=== PATIENT | male | born 1985 | race Caucasian/White ===

== ENCOUNTER 2021-08-28 18:37 | Emergency (ER) | payer OTHER, SELFPAY ==
--- NOTE | ~2021-08-28 | XR_ITS ---
EXAMINATION: XR hand RT min 3V INDICATION: Right hand pain, initial encounter TECHNIQUE: Three views of the right hand are obtained. COMPARISON: None available FINDINGS: There is an acute, traumatic, closed, oblique fracture in the midshaft of the fourth metaca rpal. The distal fracture fragment is dorsally displaced approximately one cortical width and demonst rates approximately 20 degrees of palmar angulation. The remaining osseous structures are unremarkabl e. The joint spaces are normal. IMPRESSION: 1. Acute mid shaft fracture of the fourth metacarpal with mild displacement and angulation. Reviewed, dictated and finalized at location F.
[2021-08-28 18:45] VITALS: BP 159/90; PULSE 101; RESP 16; TEMP 36.9; O2SAT 98
--- NOTE | 2021-08-28 19:08 | ED.UPPEXIN ---
HPI - Extremity Injury (Upper) General Chief Complaint: Extremity Injury, Upper Stated Complaint: Right Hand Injury Time Seen by Provider: 08/28/21 19:08 Source: patient and RN notes reviewed Mode of arrival: ambulatory Limitations: no limitations History of Present Illness HPI narrative: 36-year-old male presents with concern for right hand pain after he punched a wall 2 weeks ago. Reports of burning and stinging pain. Reports swelling. Reports he taking anything for pain. 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 complaint: injury to: right and hand Related Data Home Medications Medication Instructions Recorded Confirmed No Home Medications 08/28/21 08/28/21 Allergies Allergy/AdvReac Type Severity Reaction Status Date / Time No Known Allergies Allergy Verified 08/28/21 18:49 Review of Systems Review of Systems: CONSTITUTIONAL: Denies malaise, chills, sweats, or fever. CARDIOVASCULAR: Denies chest pain, palpitations, or edema. RESPIRATORY: Denies cough or dyspnea. SKIN: Denies rash or itching, redness, swelling. MUSCULOSKELETAL: Reports right hand pain, swelling, bruising NEUROLOGIC: Denies numbness, weakness All systems reviewed & are unremarkable except as noted in HPI and below PMFSH Comments At time of signature, agree with nursing past medical, surgical, social and family history. There is no relevant family history pertinent to the presenting complaint Exam Narrative: GENERAL: Well-appearing, well-nourished, and in no acute distress. HEAD: Normocephalic, atraumatic. EYES: PERRLA, conjunctivae clear NECK: Supple. CHEST: Speaks in full sentences. No respiratory distress. HEART: Regular rate and rhythm. Normal and equal peripheral pulses. EXTREMITIES: Right hand and digits of hand have normal strength and sensation. 5/5 strength with digit flexion, extension. Range of motion grossly normal. No clubbing, cyanosis noted. Edema and ecchymosis noted to the dorsal hand. Dorsal tenderness. Skin intact. Normal digital cascade with flexion of fingers, median, ulnar and radial nerve intact. Normal sensation of each side of finger. Normal thumb opposition. Good capillary refill and radial pulse. Distal capillary refill less than 3 seconds. Patient is right hand dominant SKIN: Warm, dry, no rash. NEURO: Alert and oriented x3. PSYCH: Normal mood and affect Course Course Emergency Course: Patient has a stainless steel ring on the third digit, the knuckle is large and the ring is unable to be removed manually. Patient reports he hardly ever takes it off and normally, prior to injury, is unable to remove it. Try to use the string method to remove the ring without success, attempted the manual saw, without any disruption to the ring. Patient refuses to have the ring cut off with a saw. He reports he will try to take it off in the morning when his hands are usually less swollen. Patient is aware of diagnosis, understands and agrees to treatment plan. Anticipatory guidance given. Patient agrees to follow-up as directed and is aware of reasons to seek care at the emergency department. Portions of this record may have been created with voice recognition software Level of Care: Express Care Visit Vital Signs Vital signs: Vital Signs Temperature 98.5 F 08/28/21 18:45 Pulse Rate 101 H 08/28/21 18:45 Respiratory Rate 16 08/28/21 18:45 Blood Pressure 159/90 H 08/28/21 18:45 Pulse Oximetry 98 08/28/21 18:45 Temperature 98.5 F 08/28/21 18:45 Pulse Rate 101 H 08/28/21 18:45 Respiratory Rate 16 08/28/21 18:45 Blood Pressure 159/90 H 08/28/21 18:45 Pulse Oximetry 98 08/28/21 18:45 Reviewed. Procedures Orthopedic Splinting/Casting Injury #1: Splinting/Casting Date: 08/28/21 Splinting/Casting Time: 19:20 Upper Extremity Injury Location: hand Splint: customized in ED OCL: ulnar gu
== END 2021-08-28 19:40 | disposition home or self-care (01) ==
PROVIDERS: Emergency Provider Nurse Practitioner
DX: S62.324A Displaced fracture of shaft of fourth metacarpal bone, right hand, initial encounter for closed fracture (principal); W22.8XXA Striking against or struck by other objects, initial encounter
CPT/HCPCS: 29125; 73130; 99214; A4565; G0463

== ENCOUNTER 2021-09-03 02:08 | Day surgery (SDC) | payer OTHER, SELFPAY ==
[2021-09-01 09:43] VITALS: BMI 23.2
--- NOTE | 2021-09-01 09:53 | PC.NURSE ---
Report to the Outpatient Waiting Room, entrance under the green pavilion located off [facility], at time 0600 on date 09/03/2021. OR Time: 0730. - You and your visitor will be asked a series of questions to screen for COVID 19 for your protection. - Only one visitor is allowed at this time. - The patient visitor is requested to leave or wait in car when not with patient. - A mask is required within the hospital. -Patients may have clear liquids (water, carbonated beverages, clear teas, apple juice) until 3 hours prior to surgery with a maximum of 20 ounces. - No food from midnight until time of surgery. Take the following medications with a SIP of water the morning of surgery: n/a Medications to discontinue per physician Date to take last dose Please no make-up, nail kyrgyz, hairspray, perfume, deodorant, or body powder the day of surgery. No jewelry (including any body piercings) or valuables the day of surgery, leave them at home. Please take a shower or bath the night before, or the morning of, surgery with an antibacterial soap. Wear comfortable, loose fitting clothing. - Jewelry must be removed prior to entering the operating room. Rings and piercings that are not removed may be cut off. - The hospital will not accept responsibility for valuables. - Please leave all valuables, including medications, at home the day of surgery. If you are going home after surgery, a licensed customer service driver must drive you home. - NO public transportation without another adult. - We recommend that an adult stay with you for 24 hours following discharge. - We also recommend that you do not drive, make important decision, drink alcoholic beverages, or take any drugs that were not prescribed by your health care provider for at least 24 hours after your discharge time. Follow any additional instructions given to you from your surgeon. If you or anyone in your household have experienced Covid symptoms in the past week, please notify your surgeon or the nurse liaison at the phone number below for possible testing. Telephone instructions given to and asked if any additional questions and then verbalized understanding. Patient advised to call surgeon office or pre surgery nurse liaison [phone] if any additional questions.
--- NOTE | ~2021-09-03 | XR_ITS ---
EXAMINATION: XR surgery orthopedic DATE: 09/03/2021 08:46 INDICATION: Reduction and fixation of a fourth metacarpal fracture. TECHNIQUE: 3 fluoroscopic images of the right fourth metacarpal were obtained during procedure perfor med by Dr. Frank. Radiologist was not present for the imaging or procedure. The amount of fluoroscopy time used during this procedure was 2.5 minutes. COMPARISON: 08/28/2021 FINDINGS: Antegrade pin fixation spanning an oblique mid diaphyseal fracture of the right fourth metacarpal whi ch is now near-anatomic alignment. There is some nonbridging callus formation surrounding the fractur e. No new fractures identified. Joint spaces are normal. IMPRESSION: 1. Near-anatomic alignment post reduction and pin fixation of a mid diaphyseal fracture of the right fourth metacarpal. Reviewed, dictated and finalized at location A.
[2021-09-03] MEDS: LACTATED RINGERS 1,000 ML 30 ML IV CONT (06:45)
[2021-09-03] MEDS: ACETAMINOPHEN 500 MG TABLET 1000 MG PO (06:47)
[2021-09-03 07:13] VITALS: BP 105/67; PULSE 64; RESP 18; TEMP 36.1; O2SAT 99
--- NOTE | 2021-09-03 07:16 | WPDHPUPDATE1 ---
History and Physical Update Update Date/Time: 09/03/21 07:16 History and Physical has been reviewed, including an updated exam of the patient. There are NO changes in the patient's condition. Risks, benefits, and alternatives have been discussed and questions answered. Patient agrees to proceed with procedure.
--- NOTE | 2021-09-03 07:19 | WPDANESEPPF ---
Anes - Initial Pre Proc Eval Procedure: Operation Date: 09/03/21 07:30 Proposed Procedures p Closed or Possible Open Reduction Internal Fixation of Right Fourth Metacarpal Shaft Fracture with Intramedullary Gerson - Willard Frank MD Date/Time: 09/03/21 07:19 Surgeon: Willard Frank MD Pre Op Diagnosis: Fx Rt Fourth Metacarpal Shaft Patient Data Age: 36 Gender: M Height: 1.85 m Weight: 83.4 kg Last Vital Signs Temp 36.1 C L 09/03/21 07:13 Pulse 64 09/03/21 07:13 Resp 18 09/03/21 07:13 BP 105/67 09/03/21 07:13 Pulse Ox 99 09/03/21 07:13 Allergies Allergy/AdvReac Type Severity Reaction Status Date / Time No Known Allergies Allergy Verified 09/03/21 07:08 Home Medications Medication Instructions Recorded Confirmed Type No Home Medications 08/28/21 09/03/21 History Patient hx anesthesia problems: none Family hx anesthesia problems: none Results Review: All pre-operative results and documents have been reviewed as part of the pre-operative evaluation. 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 Informed Consent: The patient's anesthetic plan and its attendant risks and benefits were discussed with the patient/family/POA. Questions were solicited and answers provided to the satisfaction of the patient/family/POA.
[2021-09-03] MEDS: KETOROLAC 15 MG/ML VIAL (*BKC) IV PUSH (07:26)
[2021-09-03] MEDS: ceFAZolin 2 GM/D5W 50 ML 2 GM/50 ML BAG IVPB (07:28)
[2021-09-03] MEDS: LIDO 1%/EPINEPHRINE 1:100,000 50 ML VIAL 10 ML INFILTRATE (07:28)
--- NOTE | 2021-09-03 07:28 | SUR.PREOP ---
0720 RING REMOVED BY OR PERSONEL WITH WIRE CUTTERS
[2021-09-03] MEDS: BUPIVACAINE HCL 0.5% PF 30 ML VIAL INFILTRATE (08:34)
[2021-09-03] MEDS: BACITRACIN OINTMENT 15 GM TUBE 1 APPLIC TOPICAL (08:35)
[2021-09-03 09:00] VITALS: BP 136/88; PULSE 67; RESP 12; TEMP 36.1; O2SAT 100
--- NOTE | 2021-09-03 09:08 | P.OP_ITS ---
Procedure Note - Detailed Date of Procedure 09/03/21 Pre-op Diagnosis Fx Rt Fourth Metacarpal Shaft Post-op Diagnosis Same Procedure Performed Open reduction and internal fixation of the right 4th metacarpal shaft fracture with [employer] 1.6 mm intramedullary fixation device. Surgeon Willard Frank MD Automobile Tester Pao Anesthesia General Indications Displaced right 4th metacarpal shaft fracture Description of Procedure The 4th metacarpal was marked on the patient in preop. He was taken to the operating room placed supine on the operating table. He was given general endotracheal anesthesia and the hand prepped and draped in usual fashion. A time-out was held confirmed. The C-arm was brought to the table and images made identifying entry point for the fixation device and the position of the fracture. The tourniquet was inflated 250 mmHg. The 2 surgical sites were infiltrated with 1% lidocaine with epinephrine. The small incision was made at the base of the 4th metacarpal and the entry point accessed with the introducer. This was passed into the medullary canal with fluoroscopy. The 1.6 mm mao was advanced toward the fracture line. I was not able to cross the fracture line successfully with attempted closed reduction of the fracture. A small incision was made at the 4th metacarpal fracture site and the fracture identified. The extensor tendons were held to the radial aspect and mature fracture clot was removed with the Nomi Stephen, scissors and knife. This allowed coaptation of the 2 fracture ends permitting passage of the 1.6 mm intramedullary fixation device out to the termination point at the head of 4th metacarpal. The placement was confirmed by C-arm images. The pin was then cut and bent vertically. The sleeve was passed over that to prevent rotation and inserted into the base of the 4th metacarpal. The pin was then cut below skin level and the protective plastic cap fitted over that. This construct was imaged and permanent films made. The skin was closed with a running 5 0 nylon both sites. 7 milliliter of 0.5% Marcaine were infiltrated locally. A soft bandage with Coban wrap was applied to the hand and wrist. The tourniquet was released and he was discharged from the operating room stable condition Estimated Blood Loss -5.0 Tourniquet Time 52 Drains No Packing No Pathology None sent Complications No immediate complications Condition Stable Disposition PACU
[2021-09-03 09:15] VITALS: BP 130/77; PULSE 54; RESP 10; O2SAT 100
[2021-09-03 09:30] VITALS: BP 121/74; PULSE 58; RESP 12; O2SAT 98
[2021-09-03 09:46] VITALS: BP 140/105; PULSE 52
--- NOTE | 2021-09-03 10:06 | SUR.PHASEII ---
Patient was offered an ice bag to take home and he refused.
[2021-09-03 10:15] VITALS: BP 146/83; PULSE 62
--- NOTE | 2021-09-03 10:20 | SUR.PHASEII ---
Patient vitals are stable. He is getting dressed and just waiting for ride at this time.
== END 2021-09-03 10:30 | disposition home or self-care (01) ==
PROVIDERS: Visit Provider Plastic Surgery
PROC: (CPT 26615; principal; 2021-09-03 07:30)
DX: S62.324A Displaced fracture of shaft of fourth metacarpal bone, right hand, initial encounter for closed fracture (principal); T14.90XA Injury, unspecified, initial encounter
CPT/HCPCS: 26615; A9270; C1713; J0690; J1100; J1170; J1885; J2250; J2405; J2704; J3010; J7120

== ENCOUNTER 2021-10-10 09:28 | Emergency (ER) | payer OTHER, SELFPAY ==
--- NOTE | ~2021-10-10 | XR_ITS ---
XR chest 2V 10/10/2021 10:18 Indication: Fever. Diminished breath sounds. Procedure: 2 view chest Comparison: No prior studies for comparison. Findings: There is a right upper lobe mass posteriorly overlying the hilum, suspicious for bronchogen ic carcinoma. Heart size normal. No pleural effusion or pneumothorax. Impression: 1: Large ill-defined right upper lobe mass, concerning for bronchogenic carcinoma. Reviewed, dictated and finalized at location B. Impression: 1: Large ill-defined right upper lobe mass, concerning for bronchogenic carcino ma.
[2021-10-10 09:40] VITALS: BP 131/96; PULSE 108; RESP 22; TEMP 38.9; O2SAT 97
--- NOTE | 2021-10-10 09:55 | ED.GENADULT ---
HPI - General Adult General Chief complaint: Upper Respiratory Infection Stated complaint: Sharp pains in back nausea Time Seen by Provider: 10/10/21 09:55 Source: patient and RN notes reviewed Mode of arrival: ambulatory Limitations: no limitations History of Present Illness HPI narrative: 36-year-old male presented for complaint of fever, back pain cough, nausea and vomiting for 2 days. Back pain is worse on the right mid side. Coughing up thick yellow sputum. He has been taken ibuprofen and Tylenol but states he ran out last night. He is not vaccinated for COVID or flu. He denies sick contacts. He states I think I have pneumonia. Hx 1/ PPD smoker and IVDA (Fentanyl). Related Data Allergies Allergy/AdvReac Type Severity Reaction Status Date / Time No Known Allergies Allergy Verified 10/10/21 09:55 Review of Systems Review of Systems: CONSTITUTIONAL: Endorses malaise, chills, sweats, fever EYES: Denies visual changes, redness, or discharge ENT: Denies rhinorrhea, congestion, sinus pain, otalgia, sore throat CARDIOVASCULAR: Denies chest pain, palpitations, edema RESPIRATORY: Reports cough, post nasal drainage. Denies dyspnea GASTROINTESTINAL: Denies abdominal pain MUSCULOSKELETAL: Endorses myalgia, back pain NEUROLOGIC: Reports headache PMFSH Past Medical History Medical History Chronic narcotic use Smoker Social History Social History (Updated 10/10/21 @ 11:00 by Chelsea Capone, CHARGEBACK ANALYST) Smoking packs per day: 1 Smoking cigarettes per day: 20.0 Years smoked: 15 Smoking pack-years: 15.00 Smoking status: Current every day smoker Alcohol intake: former Substance use: current Substance use type: marijuana Other substance usage details: 10 year hx of Fentanyl usage- Spiritual care concerns: No Exam Narrative: GENERAL: Ill-appearing, no distress; appears older than stated age EYES: conjunctivae clear ENT: Mucous membranes moist. TM pearly seo with dull light reflex bilaterally; no tragal tenderness. Oropharynx erythematous without lesions or exudate, no drooling, no hoarseness, no trismus, uvula midline. No tripod positioning, muffled voice, soft palate or pharyngeal wall bulging NECK: Supple. No lymphadenopathy CHEST: Clear to auscultation, breath sounds equal. No wheezing, rhonchi, rales, or stridor. No respiratory distress, speaks in full sentences. HEART: Regular rate and rhythm. No murmur heard. SKIN: sallow color, track contreras to bilateral arms NEURO: Alert and oriented x3. Course Course Emergency Course: Patient is aware of diagnosis, understands and agrees to treatment plan. Anticipatory guidance given. Patient agrees to follow-up as directed and is aware of reasons to seek care at the emergency department. Portions of this record may have been created with voice recognition software Level of Care: Express Care Visit Vital Signs Vital signs: Vital Signs Temperature 102.1 F H 10/10/21 09:40 Pulse Rate 108 H 10/10/21 09:40 Respiratory Rate 22 H 10/10/21 09:40 Blood Pressure 131/96 H 10/10/21 09:40 Pulse Oximetry 97 10/10/21 09:40 Oxygen Delivery Room Air 10/10/21 09:40 Temperature 102.1 F H 10/10/21 09:57 Pulse Rate 108 H 10/10/21 09:40 Respiratory Rate 22 H 10/10/21 09:40 Blood Pressure 131/96 H 10/10/21 09:40 Pulse Oximetry 97 10/10/21 09:40 Oxygen Delivery Room Air 10/10/21 09:40 reviewed Medical Decision Making MDM Narrative Medical decision making narrative: Flu and COVID-negative. Chest x-ray reviewed with patient at length, large ill-defined right upper lobe mass concerning for bronchogenic carcinoma. Patient is advised to follow-up with pulmonary and establish with a primary care provider. Questions answered to the best of my ability. Will treat for pna at this time. He verbalizes understanding. Girlfriend at bedside also aware. He is advised to abstain from smoking and IV drug abuse. Endorses mild improvement in sy
[2021-10-10 09:57] VITALS: TEMP 38.9
[2021-10-10] MEDS: IBUPROFEN 400 MG TABLET 800 MG PO (09:57)
[2021-10-10 10:27] VITALS: TEMP 38.4
[2021-10-10] MEDS: ONDANSETRON HCL ODT 4 MG TABLET SUBLINGUAL (10:37)
[2021-10-10 11:00] VITALS: TEMP 38.4
== END 2021-10-10 11:00 | disposition home or self-care (01) ==
PROVIDERS: Emergency Provider Nurse Practitioner Family
DX: R05.9 Cough, unspecified (principal); R91.8 Other nonspecific abnormal finding of lung field; Z20.822 Contact with and (suspected) exposure to COVID-19; F17.210 Nicotine dependence, cigarettes, uncomplicated; Z28.310 Unvaccinated for COVID-19
CPT/HCPCS: 71046; 87081; 87147; 87426; 87804; 87880; 99213; A9270; C9803; G0463

== ENCOUNTER 2021-10-11 06:17 | Inpatient (IN) | payer OTHER, SELFPAY ==
[2021-10-11] VITALS (8 sets, daily range): BP systolic 92–110; BP diastolic 50–87; PULSE 67–76; RESP 12–18; TEMP 36.4–37.3; O2SAT 93–100; BMI 24.4
--- NOTE | 2021-10-11 | ECHO_ITS ---
Patient Info Name: Wilmer Good Age: 36 years : 1985 Gender: Male Ht: 72 in Wt: 180 lbs BSA: 2.04 m2 HR: 68 bpm BP: 102 / 61 mmHg Heart Rhythm: Sinus Rhythm Technical Quality: Good Exam Date: 10/11/2021 1:11 PM Exam Location: [facility] Pulmonary Patient Status: Inpatient Admit Date: 10/11/2021 Staff Ordering Physician: Shaylee Hay MD Manufacturing Engineer Machining: Fani Felton RDCS Attending Provider: Lilly Boone DO Exam Type: CA echo doppler color flow Study Info Indications I39 - Endocarditis and heart valve disorders in diseases classified elsewhere Complete two-dimensional, color flow and Doppler transthoracic echocardiogram is performed. Summary 1. Complete two-dimensional, color flow and Doppler transthoracic echocardiogram is performed. 2. Left ventricular chamber dimension is normal. 3. Left ventricular systolic function is low normal, estimated at 50-55%. 4. There is no increased left ventricular wall thickness. 5. The left ventricular diastolic function is normal. 6. There is mild mitral valve regurgitation. 7. There is mild tricuspid valve regurgitation. 8. There is mild pulmonic regurgitation. Left Ventricle Left ventricular chamber dimension is normal. Left ventricular systolic function is low normal, estimated at 50-55%. There is no increased left ventricular wall thickness. The left ventricular diastolic function is normal. Right Ventricle Right ventricular chamber dimension is normal. Right ventricular systolic function is normal. Left Atria Left atrial chamber dimension is normal. Right Atria Right atrial chamber dimension is normal. Atrial Septum Intact interatrial septum visualized by color flow imaging. Aortic Valve The aortic valve is trileaflet. There is no aortic valve sclerosis. There is no aortic valve stenosis. There is trace aortic valve regurgitation. Pulmonic Valve The pulmonic valve is normal. There is no pulmonic valve stenosis. There is mild pulmonic regurgitation. Mitral Valve The mitral valve has normal leaflets. There is no mitral valve stenosis. There is mild mitral valve regurgitation. Tricuspid Valve The tricuspid valve leaflets are normal. There is no significant tricuspid valve stenosis. There is mild tricuspid valve regurgitation. Pericardium/Pleural The pericardium appears normal. There is no pericardial effusion. Inferior Vena Cava Normal inferior vena cava with >50% collapse upon inspiration consistent with normal right atrial pressure, 5 mmHg. Aorta The aortic root size at the sinus of Valsalva is normal. Left Ventricular Outflow Tract Name Value Normal LVOT 2D LVOT Diameter 2.1 cm LVOT Doppler LVOT Peak Gradient 2 mmHg LVOT Mean Gradient 1 mmHg LVOT VTI 20 cm LVOT VTI/AV VTI Ratio 1.1 LVOT Stroke Volume 71 ml LVOT CO 14.4 l/min LVOT CI 7.0 l/min/m2 Pulmonic Valve
--- NOTE | ~2021-10-11 | CT_ITS ---
EXAMINATION: CTA chest PE protocol DATE: 10/11/2021 08:06 CDT INDICATION: Hemoptysis TECHNIQUE: Computed tomographic angiography (CTA) of the chest was performed with 100 mL Omnipaque-35 0 intravenous contrast. The dose-length product was 349.30 mGy-cm. Maximum intensity projection 3D-re constructions of the aorta and other arteries were constructed by the technologist on a separate work station. Automated exposure control and iterative reconstruction technique were employed. COMPARISON: Chest dated 10/10/2021. FINDINGS: Study is technically adequate without evidence for pulmonary embolism. There is mediastinal and hilar lymphadenopathy, likely reactive. No significant pleural or pericardial effusion. There is extensive airspace consolidation involving the right upper, middle and lower lobes with air bronchog petar, consistent with pneumonia. This corresponds to the masslike consolidation seen on chest x-ray. No endobronchial lesions are identified. There are additional areas of groundglass opacification thro ughout the left lung. No pneumothorax. The upper abdomen is unremarkable. No acute osseous abnormalit y. IMPRESSION: 1. Extensive patchy bilateral airspace disease with masslike consolidation in the right upper and low er lobe, consistent with pneumonia. Recommend follow-up examination in 4-6 weeks following appropriat e therapy to assess for resolution. 2: Mediastinal and right hilar lymphadenopathy, likely reactive. 3: No evidence for pulmonary embolism. Reviewed, dictated and finalized at location A. IMPRESSION: 1. Extensive patchy bilateral airspace disease with masslike consolidation in t he right upper and lower lobe, consistent with pneumonia. Recommend follow-up e xamination in 4-6 weeks following appropriate therapy to assess for resolution. 2: Mediastinal and right hilar lymphadenopathy, likely reactive. 3: No evidence for pulmonary embolism.
--- NOTE | 2021-10-11 06:43 | ECG_ITS ---
Measurements Intervals [place] Rate: 69 P: 53 MO: 167 QRS: 44 QRSD: 95 T: 51 QT: 416 QTc: 447 Interpretive Statements SINUS RHYTHM POSSIBLE RIGHT VENTRICULAR CONDUCTION DELAY [RSR (QR) IN V1/V2] ST ELEVATION, PROBABLY EARLY REPOLARIZATION [ST ELEVATION WITH NORMALLY INFLECTED T WAVE] NO PREVIOUS ECG AVAILABLE FOR COMPARISON Electronically Signed On 10-11-2021 13:46:38 CDT by Charles Piña M.D.
--- NOTE | 2021-10-11 07:00 | ED.GENADULT ---
HPI - General Adult General Chief complaint: Unspecified Stated complaint: Coughing up blood, seen at yesterday Time Seen by Provider: 10/11/21 06:21 Related Data Allergies Allergy/AdvReac Type Severity Reaction Status Date / Time No Known Allergies Allergy Verified 10/11/21 06:28 [facility] Past Medical History Medical History Chronic narcotic use Smoker Social History Social History (Updated 10/10/21 @ 11:00 by Chelsea Capone, CURB BUILDER) Smoking packs per day: 1 Smoking cigarettes per day: 20.0 Years smoked: 15 Smoking pack-years: 15.00 Smoking status: Current every day smoker Alcohol intake: former Substance use: current Substance use type: marijuana Other substance usage details: 10 year hx of Fentanyl usage- Spiritual care concerns: No Course Vital Signs Vital signs: Vital Signs Temperature 97.5 F L 10/11/21 06:21 Pulse Rate 68 10/11/21 06:21 Respiratory Rate 12 10/11/21 06:21 Blood Pressure 110/87 10/11/21 06:21 Pulse Oximetry 100 10/11/21 06:21 Oxygen Delivery Room Air 10/11/21 06:21 Temperature 97.5 F L 10/11/21 06:21 Pulse Rate 68 10/11/21 06:21 Respiratory Rate 12 10/11/21 06:21 Blood Pressure 110/87 10/11/21 06:21 Pulse Oximetry 100 10/11/21 06:21 Oxygen Delivery Room Air 10/11/21 06:21 Medical Decision Making Vital Signs Vital Signs: Vital Signs Temperature 97.5 F L 10/11/21 06:21 Pulse Rate 68 10/11/21 06:21 Respiratory Rate 12 10/11/21 06:21 Blood Pressure 110/87 10/11/21 06:21 Pulse Oximetry 100 10/11/21 06:21 Oxygen Delivery Room Air 10/11/21 06:21 Temperature 97.5 F L 10/11/21 06:21 Pulse Rate 68 10/11/21 06:21 Respiratory Rate 12 10/11/21 06:21 Blood Pressure 110/87 10/11/21 06:21 Pulse Oximetry 100 10/11/21 06:21 Oxygen Delivery Room Air 10/11/21 06:21 Discharge Plan Discharge Prescriptions: No Action ibuprofen 800 mg tablet 800 mg PO TID PRN (Reason: pain) Qty: 15 0RF benzonatate 200 mg capsule 200 mg PO TID PRN (Reason: cough) Qty: 20 0RF methylprednisolone [Medrol (Bishop)] 4 mg tablets,dose pack See Rx Instructions .ROUTE .COMPLEX Qty: 21 0RF Rx Instructions: orally per package directions ondansetron 4 mg tablet,disintegrating 4 mg PO Q8H PRN (Reason: nausea and vomiting) Qty: 20 0RF doxycycline hyclate 100 mg tablet 100 mg PO BID 7 Days Qty: 14 0RF Follow-up/Referrals: PHYSICIAN,ROTO ROOTER OPERATOR [Primary Care Provider] -
--- NOTE | 2021-10-11 07:02 | ED.GENADULT ---
HPI - General Adult General Chief complaint: Unspecified <Art Lay MD - Last Filed: 10/11/21 19:00> Stated complaint: Coughing up blood, seen at yesterday <Art Lay MD - Last Filed: 10/11/21 19:00> Time Seen by Provider: 10/11/21 06:21 <Art Lay MD - Last Filed: 10/11/21 19:00> Source: patient <Art Lay MD - Last Filed: 10/11/21 19:00> History of Present Illness HPI narrative: Patient presents with coughing up blood. Patient ports he was in urgent care yesterday. He presented there for back pain fevers cough and nausea. He was worked up and was told he has a a lung mass he was started on cough suppressant steroids and antibiotics. He feels like his fever and pain is improved however this morning he noted he was coughing up blood so he came to the ER for further evaluation. Reports continued cough denies fevers denies chest pain denies shortness of breath. <Art Lay MD - Last Filed: 10/11/21 19:00> Related Data Allergies/adverse reactions: Allergies Allergy/AdvReac Type Severity Reaction Status Date / Time vancomycin AdvReac Itching Verified 10/11/21 09:09 <Art Lay MD - Last Filed: 10/11/21 19:00> Review of Systems Review of Systems: CONSTITUTIONAL: Denies fever, chills, or sweats. EYES: Denies visual changes, redness, or discharge. ENT: Denies rhinorrhea, congestion, sore throat, or otalgia. CARDIOVASCULAR: Denies chest pain, palpitations, or edema. RESPIRATORY: Reports cough with blood GASTROINTESTINAL: Denies abdominal pain, or diarrhea. GENITOURINARY: Denies dysuria or hematuria. SKIN: Denies rash or itching. MUSCULOSKELETAL: Denies back pain, joint pain, or myalgia. NEUROLOGIC: Denies headache, numbness, dizziness, or weakness. PSYCHIATRIC: Denies anxiety or depression. <Art Lay MD - Last Filed: 10/11/21 19:00> All systems reviewed & are unremarkable except as noted in HPI and below <Art Lay MD - Last Filed: 10/11/21 19:00> [facility] Past Medical History Medical History: Medical History Chronic narcotic use Smoker <Art Lay MD - Last Filed: 10/11/21 19:00> Social History Social History: Social History Smoking packs per day: 1 Smoking cigarettes per day: 20.0 Years smoked: 15 Smoking pack-years: 15.00 Smoking status: Current every day smoker Tobacco type: cigarettes Additional smoking assessment comments: Marijuana Alcohol intake: former Substance use: current Substance use type: marijuana and IV drugs Other substance usage details: 10 year hx of Fentanyl usage- Spiritual care concerns: No <Art Lay MD - Last Filed: 10/11/21 19:00> Exam Narrative: GENERAL: Well-appearing, well-nourished, and in no acute distress. HEAD: Normocephalic, atraumatic. EYES: PERRLA and EOMI. ENT: Nares clear, no rhinorrhea or epistaxis. Mucous membranes moist. NECK: Supple. No masses. No JVD CHEST: Clear to auscultation. No respiratory distress. No wheezes rales or rhonchi HEART: Regular rate and rhythm. No murmur heard. Normal peripheral pulses. ABDOMEN: Soft, nontender, nondistended, normal active bowel sounds. EXTREMITIES: Normal range of motion. No edema. SKIN: Warm, dry, no rash. NEURO: No focal deficits. Alert and oriented x3. PSYCH: Normal mood and affect. <Art Lay MD - Last Filed: 10/11/21 19:00> Course Reevaluation(s) Reevaluation #1: Initial exam is with a clinically stable patient initial work-up ordered. Patient was signed out to Dr. Hay pending imaging and laboratory work-up. <Art Lay MD - Last Filed: 10/11/21 19:00> Date: 10/11/21 <Art Lay MD - Last Filed: 10/11/21 19:00> Time: 07:06 <Art Lay MD - Last Filed: 10/11/21 19:00> Vital Signs Vital signs: Vital Signs Temperature 36.4 C L 10/11/21 06:21 Pulse Rate
[2021-10-11 07:10] LABS: Basophils Percent Auto 0.1 % (0.2-1.2); Hematocrit 37.9 % (42.0-52.0); Hemoglobin 13.1 g/dL (14.0-18.0); Immature Granulocyte Absolute 0.03 K/mm3 (0.00-0.031); Immature Granulocyte Percent A 0.4 % (0-0.5); Lymphocytes Absolute Auto 0.47 K/mm3 (0.9-3.2); Lymphocytes Percent Auto 6.6 % (18.3-44.2); Mean Corpuscular HGB Conc 34.6 g/dl (32-36); Mean Corpuscular Hemoglobin 28.3 pg (26-34); Mean Corpuscular Volume 81.9 fl (80-100); Mean Platelet Volume 9.2 fl (7.4-10.4); Monocytes Absolute Auto 0.3 K/mm3 (0.1-0.6); Monocytes Percent Auto 4.6 % (2.6-8.5); Neutrophils Absolute Auto 6.3 K/mm3 (1.3-6.7); Neutrophils Percent Auto 88.3 % (45.5-73.1); Platelet Count Result 190 k/mm3 (150-375); Red Blood Count 4.63 M/mm3 (4.6-6.20); Red Cell Distribution Width 13.9 % (11.5-14.5); White Blood Count 7.2 K/mm3 (4.5-10.0)
[2021-10-11 07:19] LABS: Alanine Aminotransferase 29 U/L (6-50); Albumin Level 3.7 g/dL (3.5-5.1); Alkaline Phosphatase 126 U/L (38-126); Anion Gap 10 mmol/L (8-16); Aspartate Amino Transferase 37 U/L (17-59); Bilirubin,Total 0.6 mg/dL (0.2-1.3); Blood Urea Nitrogen 36 mg/dL (9-20); Calcium 8.7 mg/dL (8.4-10.2); Carbon Dioxide 24 mmol/L (22-30); Chloride 101 mmol/L (98-107); Estimated CRCL calculation 61 ml/min; Estimated Glomerular Filt Rate 46; Glucose 119 mg/dL (65-110); Potassium 4.3 mmol/L (3.4-5.0); Sodium 135 mmol/L (137-145)
[2021-10-11 07:24] LABS: INR 1.2
[2021-10-11 07:25] LABS: Partial Thromboplastin Time 34.9 SECONDS (22.3-36.8)
[2021-10-11 07:30] LABS: Anisocytosis 1+ (NORMAL); Burr Cells 1+ (NORMAL); Platelet Estimate Adequate (Adequate)
--- NOTE | 2021-10-11 08:53 | PC.NURSE ---
Attempted to obtain blood cultures, flash obtained but would not draw into green bottle.
[2021-10-11 09:25] LABS: Lactic Acid Reflex 2.9 mmol/L (0.7-2.0)
[2021-10-11 09:27] LABS: Appearance Urine Clear (Clear); Bilirubin Urine Negative (Negative); Blood Urine Trace-lysed (Negative); Color Urine Yellow (Yellow); Glucose Urine UA Negative (Negative); Ketones Urine Negative (Negative); Leukocyte Esterase Ur Negative LEU/UL (Negative); Nitrate Urine Negative (Negative); Protein Urine 1+ mg/dL (Negative); pH Urine 5.5 (5.0-9.0)
[2021-10-11 09:37] LABS: Mucus Urine Rare /lpf; RBC Urine 0-2 /hpf (0-2); Squamous Epithelial Cell Urine Rare /hpf (Few)
[2021-10-11 09:39] LABS: Erythrocyte Sedimentation Rate 20 mm/hr (0-20)
[2021-10-11 09:40] LABS: Add Urine Microscopic? YES
[2021-10-11] MEDS: AMPICILLIN SULB 3 GM/NS 100 ML 3 GM/100 ML VIAL IVPB (09:44)
[2021-10-11 09:52] LABS: Influenza A QL RT-PCR Negative (Negative); Influenza B QL RT-PCR Negative (Negative); SARS-CoV-2 RNA PCR Negative
--- NOTE | 2021-10-11 11:44 | ADMGEN ---
This patient, Wilmer Good, was admitted to Medical Room 345-01. Patient/family oriented to hospital policies and general routines including ID bracelet, bed and alarms, visiting hours, pain management, procedures, bathroom and other care routines, personal items, smoking policy, room service/diet, and visiting hours. Information on how to activate the Rapid Response Team has been discussed. Patient/Family are encouraged to report perceived risks to care and to ask questions if they do not understand what they are told or what they should do.
[2021-10-11 12:14] LABS: Reflex Lactic Acid Yes or No Add Lactic
--- NOTE | 2021-10-11 12:53 | PM.IMHP ---
H&P: HPI History of Present Illness Date/Time: 10/11/21 12:53 Chief Complaint: 36-year-old male with past medical history significant for IV drug abuse is presenting with hemoptysis, fevers and chills with associated nausea and vomiting for the last 1-3 days. He also noted some chest tightness and discomfort with some associated shortness of breath and productive cough. Over the last day, he has noticed blood-tinged sputum with his coughs. Chest CT showed extensive infiltrates suggestive of community-acquired pneumonia. Per the pulmonology consultation, he did receive antibiotics on an outpatient basis for 1 day and seemed to improve. There is a small risk of aspiration pneumonia as well per the pulmonology consultation. In the ER, was found to infiltrates with possible lung mass. He was fluid COVID negative. Other workup is still pending, urine Legionella and urine strep pneumo antibodies. Review of Systems Review of Systems: Twelve point review of systems was reviewed and is negative except as noted in the HPI PMFSH Past Medical History Medical History Chronic narcotic use Smoker Social History Social History Smoking packs per day: 1 Smoking cigarettes per day: 20.0 Years smoked: 15 Smoking pack-years: 15.00 Smoking status: Current every day smoker Tobacco type: cigarettes Additional smoking assessment comments: Marijuana Alcohol intake: former Substance use: current Substance use type: marijuana and IV drugs Other substance usage details: 10 year hx of Fentanyl usage- Spiritual care concerns: No Meds Home Medications and Allergies Home Medications Medication Instructions Recorded Confirmed Type benzonatate 200 mg capsule 200 mg PO TID PRN cough #20 caps 10/10/21 10/11/21 Rx doxycycline hyclate 100 mg tablet 100 mg PO BID 7 days #14 tabs 10/10/21 10/11/21 Rx ibuprofen 800 mg tablet 800 mg PO TID PRN pain #15 tabs 10/10/21 10/11/21 Rx methylprednisolone 4 mg tablets in See Rx Instructions PO .COMPLEX 10/10/21 10/11/21 Rx a dose pack (Medrol ([facility])) #21 ea ondansetron 4 mg disintegrating 4 mg PO Q8H PRN nausea and 10/10/21 10/11/21 Rx tablet vomiting #20 tabs Allergies Allergy/AdvReac Type Severity Reaction Status Date / Time vancomycin AdvReac Itching Verified 10/11/21 09:09 Vital Signs Vital Signs - 24 hr 10/11/21 06:21 10/11/21 07:07 10/11/21 07:07 Temperature 97.5 F L Pulse Rate 68 69 69 Respiratory Rate 12 17 Blood Pressure 110/87 92/61 L Pulse Oximetry 100 93 Oxygen Delivery Room Air 10/11/21 08:38 10/11/21 09:47 10/11/21 10:46 Temperature Pulse Rate 71 69 71 Respiratory Rate 18 18 17 Blood Pressure 103/65 109/62 103/61 Pulse Oximetry 95 98 99 Oxygen Delivery 10/11/21 11:23 Temperature Pulse Rate 67 Respiratory Rate 17 Blood Pressure 102/61 Pulse Oximetry 98 Oxygen Delivery Exam Narrative: General: Patient resting comfortably in bed, no acute distress HEENT: Atraumatic, normocephalic, mucous membranes moist CV: Regular rate and rhythm, S1, S2, no murmurs rubs or gallops noted Lungs: Good air entry, no wheezes noted, some crackles and rales on the right with decreased breath sounds Abdomen: Soft, nontender, nondistended Extremities: Normal to inspection, no edema noted Skin: No rashes noted, no lesions or wounds seen Psych: Euthymic, normal affect Neuro: Cranial nerves 2-12 grossly intact, strength 5/5 upper and lower extremities noted H&P: Results Labs Labs: Short CBC 10/11/21 Range/Units 07:00 WBC 7.2 (4.5-10.0) K/mm3 Hgb 13.1 L (14.0-18.0) g/dL Hct 37.9 L (42.0-52.0) % Plt Count 190 (150-375) k/mm3 [facility] 10/11/21 07:00 Sodium 135 L Potassium 4.3 Chloride 101 Carbon Dioxide 24 BUN 36 H Creatinine 1.70 H Glucose 119 H Calcium 8.7 Liver Function 10/11/21 Range/Units 07:00 Total Bilirubin 0.
[2021-10-11 12:55] LABS: Lactic Acid 2.2 mmol/L (0.7-2.0)
--- NOTE | 2021-10-11 13:16 | PM.CNPUL ---
Assessment and Plan Assessment and plan (1) Pneumonia: Code(s): J18.9 - Pneumonia, unspecified organism Status: Acute Assessment and Plan: 36-year-old man with history of IV drug use presented with fever chills pleuritic chest pain and hemoptysis of 3 days duration. In addition he had history of nausea and vomiting for 1 day but no history of loss of consciousness. Chest CT showed extensive infiltrate in the posterior segment of the right upper lobe, superior segment of the right lower lobe and also small infiltrates in the right lower lobe and left lung. The patient's history of fever chills pleuritic chest pain, prompt resolution of fever and in conjunction with the chest CT findings suggest community-acquired pneumonia most likely pneumococcal pneumonia. Patient has clinically improved with antibiotics he received on outpatient basis for 1 day. The distribution of lung infiltrates could also be compatible with aspiration pneumonia. As stated he had no loss of consciousness but the history of vomiting prior to coming to the hospital may explain the smaller infiltrates in the right lower lobe and also in the left lung. Plan: I will start the patient on ceftriaxone 2 g daily and also Zithromax IV. pneumococcal urine antigen pending. Will screen for MRSA. Consider DVT prophylaxis with SCDs for today.. Will consider Lovenox prophylaxis for DVT in am if hemoptysis improves. The patient will need to be monitored for signs of opiate withdrawal. (2) Hemoptysis: Code(s): R04.2 - Hemoptysis Status: Acute (3) Chronic narcotic use: Code(s): F11.90 - Opioid use, unspecified, uncomplicated Status: Acute (4) IVDU (intravenous drug user): Code(s): F19.90 - Other psychoactive substance use, unspecified, uncomplicated Status: Acute (5) Smoker: Code(s): F17.200 - Nicotine dependence, unspecified, uncomplicated Status: Acute History of Present Illness History of Present Illness Consult date: 10/11/21 Chief complaint: pna,ivdu Narrative: this 36-year-old man presented with hemoptysis. The patient was in his usual state of health until approximately 3 days ago when he started to have chills cough and right pleuritic chest pain. Patient's cough was productive of yellow to green phlegm. Patient continued to have fever chills and cough for the subsequent 48 hours. Two days prior to admission he went to [facility] and then to an urgent care center where he was told he had pneumonia and a lung mass. The patient started on antibiotic and as well as oral steroid burst. Two days prior to admission in addition to symptoms of cough and fever the patient also had nausea and vomiting. He vomited several times. He has no loss of consciousness. earlier today, the patient started to have hemoptysis. He was coughing up phlegm mixed with bright red blood. his last episode of hemoptysis was this morning. Currently he has no chest pain. Cough is less. Patient is no longer febrile. Workup with chest CT showed no evidence of pulmonary embolism. There was extensive infiltrate in the right upper lobe and also superior segment of the right lower lobe. Smaller infiltrate in the left lung. Patient's past medical history significant for IV drug abuse. He uses IV fentanyl. He also smokes 1 pack per day and smokes more A1 as well. Reportedly he is not using heroin. He reports allergy to cocaine. Review of Systems Review of Systems: Patient reports no weight changes. Approximately 1 week prior to starting coughing he was exposed to some ceramic dust. He has orthopnea. He no longer has chest pain. Having nausea diarrhea or constipation. He last vomiting was approximately yesterday in a.m.. He has no urinary complaints. He has no skin rashes. Reports no recent loss of consciousness. He goes through opiate withdrawal when not injecting Fentanyl. the remaining of the 12 point syst
[2021-10-11 13:26] LABS: HIV 1/2 Ab P24 Ag Result Negative (Negative)
[2021-10-11] MEDS: cefTRIAXone 2 GM in SODIUM CHLORIDE 0.9% IV 100 ML 200 ML IVPB (14:51)
[2021-10-11] MEDS: diphenhydrAMINE HCl INJ 50 MG/ML VIAL 25 MG IV PUSH (17:25)
[2021-10-11] MEDS: NICOTINE (*PBKC) 21 MG PATCH 1 PATCH TRANSDERM (21:44)
[2021-10-11] MEDS: MELATONIN 5 MG TABLET PO (21:44)
[2021-10-12 06:00] VITALS: BP 110/61; PULSE 68; RESP 14; TEMP 37.1; O2SAT 98
[2021-10-12] MEDS: AZITHROMYCIN 250 MG TABLET 500 MG PO (09:55)
--- NOTE | 2021-10-12 12:34 | PM.IMPN ---
Progress Note: A&P Assessment and Plan (1) Hemoptysis: Code(s): R04.2 - Hemoptysis Status: Acute Assessment and Plan: Suspect this could be secondary to typical community-acquired pneumonia with irritation secondary to the infection or he could also have some pneumonitis due to inhalation on his job site that includes multiple inhalers requiring him to wear a respirator, but he does not always wear 1. He will need outpatient follow-up with PFTs and repeat chest imaging to confirm complete resolution of the abnormalities found on chest imaging during this admission. He could potentially be a candidate for bronchoscopy as well if the hemoptysis does not resolve. (2) Acute kidney injury: Code(s): N17.9 - Acute kidney failure, unspecified Status: Acute Assessment and Plan: Improving as of yesterday, IV fluids discontinued, labs pending for today, continue to monitor on p.o. fluids (3) Hyponatremia: Code(s): E87.1 - Hypo-osmolality and hyponatremia Status: Acute Assessment and Plan: Lab still pending for today, anticipated to continue to improve with oral fluid intake (4) Smoker: Code(s): F17.200 - Nicotine dependence, unspecified, uncomplicated Status: Acute Assessment and Plan: Offer nicotine patch while here, encouraged cessation (5) IVDU (intravenous drug user): Code(s): F19.90 - Other psychoactive substance use, unspecified, uncomplicated Status: Acute Assessment and Plan: Encouraged cessation, consult a medicare sales executive for assistance in rehab options outpatient Clonidine patch plus hydroxyzine as needed were added for withdrawal symptoms (6) Community acquired pneumonia: Code(s): J18.9 - Pneumonia, unspecified organism Status: Acute Assessment and Plan: Discontinue IV antibiotics, continue azithromycin 500 mg for 1 more day tomorrow, Augmentin for 3 more days for total of 5 day course Plan Anticipate discharge tomorrow on oral antibiotics of Augmentin, he will complete a 3 day course of azithromycin 500 mg daily, follow-up closely with outpatient pulmonology for repeat chest imaging, PFTs for suspected asthma diagnosis due to history of difficulty breathing that resolves with using his friend's inhaler, and possible bronchoscopy if hemoptysis does not resolve to look for more insidious pathology versus pneumonitis. Recommend continuous respirator use while at work as well as quitting smoking and IV drug use. Subjective Date/time seen: 10/12/21 12:34 Exam Narrative: General: Patient resting comfortably in bed, no acute distress HEENT: Atraumatic, normocephalic, mucous membranes moist CV: Regular rate and rhythm, S1, S2, no murmurs rubs or gallops noted Lungs: Good air entry, no wheezes noted, some crackles and rales on the right with decreased breath sounds Abdomen: Soft, nontender, nondistended Extremities: Normal to inspection, no edema noted Skin: No rashes noted, no lesions or wounds seen Psych: Euthymic, normal affect Neuro: Cranial nerves 2-12 grossly intact, strength 5/5 upper and lower extremities noted Objective Data Vital Signs Vital Signs: Vital Signs - 24 hr 10/11/21 14:00 10/11/21 20:21 10/12/21 06:00 Temperature 97.7 F 99.1 F 98.7 F Pulse Rate 71 76 68 Respiratory Rate 16 16 14 Blood Pressure 94/50 L 95/53 L 110/61 Pulse Oximetry 98 96 98 Oxygen Delivery 10/12/21 08:00 Temperature Pulse Rate Respiratory Rate Blood Pressure Pulse Oximetry Oxygen Delivery Room Air Intake/Output Intake/Output: Intake & Output 10/09/21 10/10/21 10/11/21 10/12/21 23:59 23:59 23:59 23:59 Intake Total 1160 760 Output Total 400 Balance 1160 360 Meds/Results Medications: Active Medications Generic Name Dose Route Start Last Admin Trade Name Freq PRN Reason Stop Dose Admin Amoxicillin/Clavulanate Potassium 1 tablet 10/12/21 21:00 Amoxicillin/Clavula
[2021-10-12 13:02] LABS: Hematocrit 39.8 % (42.0-52.0); Hemoglobin 13.7 g/dL (14.0-18.0); Mean Corpuscular HGB Conc 34.4 g/dl (32-36); Mean Corpuscular Hemoglobin 27.7 pg (26-34); Mean Corpuscular Volume 80.4 fl (80-100); Mean Platelet Volume 8.7 fl (7.4-10.4); Platelet Count Result 251 k/mm3 (150-375); Red Blood Count 4.95 M/mm3 (4.6-6.20); Red Cell Distribution Width 14.2 % (11.5-14.5); White Blood Count 10.9 K/mm3 (4.5-10.0)
--- NOTE | 2021-10-12 13:16 | PM.PNPUL ---
Progress Note: A&P Assessment and Plan (1) Community acquired pneumonia: Code(s): J18.9 - Pneumonia, unspecified organism Status: Acute Assessment and Plan: respiratory status has improved over the last 24 hours. He no longer has hemoptysis. Remaining on room air. Sputum growing some Gram-negative bacilli. Throat culture showed group A strep. Plan continue with current antibiotic regimen, consider DVT prophylaxis with subQ Lovenox, encourage patient to ambulate. Repeat chest x-ray in a.m.. (2) Pneumonia: Code(s): J18.9 - Pneumonia, unspecified organism Status: Acute (3) IVDU (intravenous drug user): Code(s): F19.90 - Other psychoactive substance use, unspecified, uncomplicated Status: Acute (4) Chronic narcotic use: Code(s): F11.90 - Opioid use, unspecified, uncomplicated Status: Acute (5) Smoker: Code(s): F17.200 - Nicotine dependence, unspecified, uncomplicated Status: Acute Subjective Date/time seen: 10/12/21 13:16 Respiratory status improved over last 24 hours. No loni hemoptysis over the last 24 hours. He has had expectoration of yellowish phlegm mixed with some dark blood. Has been afebrile, remaining on ambient air. Review of Systems Review of Systems: All system review is unremarkable except as noted in H&P and below Exam Narrative: GENERAL APPEARANCE: Well developed, well nourished, alert and cooperative, and appears to be in no acute distress while on room air SKIN: Inspection of the skin reveals no rashes, ulcerations or petechiae. HEENT: Sclerae anicteric and conjunctivae pink and moist. Extraocular movements were intact and pupils were equal, round, and reactive to light. NECK: Supple. There was no thyroid enlargement, and no tenderness, or masses were felt. CHEST: Normal AP diameter and normal contour without any kyphoscoliosis. LUNGS: Auscultation of the lungs revealed normal rare crackles at right lung posteriorly no wheezing CARDIAC: There was a regular rate and rhythm without any murmurs, gallops, rubs. ABDOMEN: Soft and nontender with normal bowel sounds. There was no organomegaly. LYMPH NODES: No lymphadenopathy was appreciated in the neck. EXTREMITIES: No cyanosis, clubbing or edema. NEUROLOGIC: Alert and oriented x 3. Normal affect. Objective Data Vital Signs Vital Signs: Vital Signs - 24 hr 10/11/21 14:00 10/11/21 20:21 10/12/21 06:00 Temperature 36.5 C 37.3 C 37.1 C Pulse Rate 71 76 68 Respiratory Rate 16 16 14 Blood Pressure 94/50 L 95/53 L 110/61 Pulse Oximetry 98 96 98 Oxygen Delivery 10/12/21 08:00 Temperature Pulse Rate Respiratory Rate Blood Pressure Pulse Oximetry Oxygen Delivery Room Air Intake/Output Intake/Output: Intake & Output 10/09/21 10/10/21 10/11/21 10/12/21 23:59 23:59 23:59 23:59 Intake Total 1160 760 Output Total 400 Balance 1160 360 Meds/Results Medications: Active Medications Generic Name Dose Route Start Last Admin Trade Name Freq PRN Reason Stop Dose Admin Amoxicillin/Clavulanate Potassium 1 tablet 10/12/21 21:00 Amoxicillin/Clavulanate K 875-125 Mg Tab PO 10/15/21 21:00 Q12HR NIYAH Azithromycin 500 mg 10/12/21 09:00 10/12/21 09:55 Azithromycin 250 Mg Tablet PO 500 mg DAILY NIYAH Administration Clonidine HCl 1 patch 10/12/21 13:00 Clonidine 0.1 Mg/24 Hr Patch TRANSDERM WEEKLY NIYAH Hydroxyzine HCl 25 mg 10/12/21 12:25 Hydroxyzine Hcl 25 Mg Tablet PO Q6H PRN withdrawal, irritability Melatonin 5 mg 10/11/21 21:00 10/11/21 21:44 Melatonin 5 Mg Tablet PO 5 mg HS NIYAH Administration Nicotine 1 patch 10/12/21 09:00 10/11/21 21:44 Nicotine (*Pbkc) 21 Mg Patch TRANSDERM 1 patch QAM NIYAH Administration Pantoprazole Sodium 40 mg 10/12/21 12:25 Pantoprazole 40 Mg Tablet PO QAM NIYAH Perflutren Lipid Microsphere 0 ml 10/11/21 08:43 Perflutren Lipid Microspheres 1
[2021-10-12 13:18] LABS: Anion Gap 9 mmol/L (8-16); Blood Urea Nitrogen 20 mg/dL (9-20); Calcium 8.8 mg/dL (8.4-10.2); Carbon Dioxide 27 mmol/L (22-30); Chloride 101 mmol/L (98-107); Estimated CRCL calculation 111 ml/min; Estimated Glomerular Filt Rate > 60; Glucose 95 mg/dL (65-110); Potassium 3.2 mmol/L (3.4-5.0); Sodium 137 mmol/L (137-145)
[2021-10-12] MEDS: cloNIDine 0.1 MG/24 HR PATCH 1 PATCH TRANSDERM (13:30)
[2021-10-12] MEDS: PANTOPRAZOLE 40 MG TABLET PO (13:30)
[2021-10-12] MEDS: ACETAMINOPHEN 500 MG TABLET 1000 MG PO (13:55)
[2021-10-12 14:09] VITALS: BP 106/67; PULSE 71; RESP 16; TEMP 36.8; O2SAT 99
[2021-10-12 14:17] VITALS: O2SAT 99
[2021-10-12 14:59] LABS: Band Neutrophils Percent 14 % (0-6); Monocytes Absolute Manual 0.32 K/mm3 (0.1-0.90); Monocytes Percent Manual 3 % (3-9); Neutrophils Absolute Manual 9.26 K/mm3 (1.3-6.7); Neutrophils Percent Manual 71 % (46-73); Total Cells Counted 100
[2021-10-12 15:00] LABS: Platelet Estimate Adequate (Adequate)
[2021-10-12] MEDS: AMOXICILLIN/CLAVULANATE K 875-125 MG TAB 1 TABLET PO (21:36)
[2021-10-12] MEDS: MELATONIN 5 MG TABLET PO (21:36)
[2021-10-12 21:57] VITALS: BP 102/68; PULSE 49; RESP 16; TEMP 36.7; O2SAT 99
[2021-10-12 23:00] VITALS: O2SAT 99
[2021-10-13] MEDS: ACETAMINOPHEN 325 MG TABLET 650 MG PO (04:32)
[2021-10-13 05:11] VITALS: BP 123/73; PULSE 69; RESP 20; TEMP 36.7; O2SAT 99
--- NOTE | 2021-10-13 05:59 | PC.NURSE ---
Patient requesting to leave AMA. Notified warehouse distribution specialist and hospitalist. Went over AMA form with patient and potentially life threatening consequences of leaving AMA. Patient still insistent to leave. Patient signed form with RN to witness, see paper chart.
--- NOTE | 2021-10-13 08:05 | PM.EVENT ---
Event Note Event Note Event Note: The patient left AMA at 6:07 a.m. He left AMA without antibiotics despite being informed that if he does waited until 7:00 a.m. he could be discharged as planned by the daytime provider's. He verbalized understanding of the risks of worsening infection to nursing staff including potential for from incompletely treated pneumonia.
[2021-10-13 16:26] LABS: Pneumococcal Antigen Urine Not Detected (Not Detected)
[2021-10-13 23:18] LABS: Legionella pneumophila Ag Ur Not Detected (Not Detected)
[2021-10-16 18:07] LABS: S. pneumonia Serotype 1 (1) <0.3; S. pneumonia Serotype 12 (12F) <0.3; S. pneumonia Serotype 14 (14) 1.2; S. pneumonia Serotype 18C (56) <0.3; S. pneumonia Serotype 19 (19F) 3.4; S. pneumonia Serotype 2 (2) 0.7; S. pneumonia Serotype 20 (20) 0.8; S. pneumonia Serotype 22 (22F) 0.5; S. pneumonia Serotype 23 (23F) 1.6; S. pneumonia Serotype 3 (3) 0.7; S. pneumonia Serotype 34 (10A) 0.4; S. pneumonia Serotype 4 (4) <0.3; S. pneumonia Serotype 43 (11A) 3.6; S. pneumonia Serotype 5 (5) 0.9; S. pneumonia Serotype 51 (7F) 0.5; S. pneumonia Serotype 54 (15B) 1.5; S. pneumonia Serotype 57 (19A) 1.6; S. pneumonia Serotype 68 (9V) 0.9; S. pneumonia Serotype 6B (26) 2.6; S. pneumonia Serotype 70 (33F) 0.3; S. pneumonia Serotype 8 (8) 1.6; S. pneumonia Serotype 9 (9N) 2.6
== END 2021-10-13 06:07 | disposition left against medical advice (07) | DRG 139 ==
LOC: ANHED 09:33 → ANH3MED 11:25
PROVIDERS: Emergency Medicine; Internal Medicine Pulmonary Disease; Admitting Provider Student in an Organized Health Care Education/Training Program; Emergency Provider Emergency Medicine; Visit Provider Student in an Organized Health Care Education/Training Program
DX: J13 Pneumonia due to Streptococcus pneumoniae (principal); B96.89 Other specified bacterial agents as the cause of diseases classified elsewhere; B95.0 Streptococcus, group A, as the cause of diseases classified elsewhere; J69.0 Pneumonitis due to inhalation of food and vomit; N17.9 Acute kidney failure, unspecified; E87.1 Hypo-osmolality and hyponatremia; R91.8 Other nonspecific abnormal finding of lung field; R04.2 Hemoptysis; Z20.822 Contact with and (suspected) exposure to COVID-19; F17.210 Nicotine dependence, cigarettes, uncomplicated; F11.90 Opioid use, unspecified, uncomplicated; F12.90 Cannabis use, unspecified, uncomplicated; F19.10 Other psychoactive substance abuse, uncomplicated
CPT/HCPCS: 36415; 71275; 80048; 80053; 81001; 83605; 84145; 85025; 85610; 85652; 85730; 86317; 86703; 87040; 87070; 87077; 87081; 87205; 87449; 87502; 87899; 93005; 93306; 96365; 96375; 99285; A9270; C9803; G0378; G0379; G0432; J0295; J0456; J0696; J1200; Q9967; U0003; U0005

== ENCOUNTER 2021-12-03 08:55 | Day surgery (SDC) | payer OTHER, SELFPAY ==
[2021-10-31 11:20] VITALS: BMI 23.1
--- NOTE | 2021-10-31 11:27 | PC.NURSE ---
Addendum entered by Winnie Yun RN 11/12/21 10:32: CONTACTED PT BY PHONE, STATES NO CHANGE IN HEALTH STATUS OR MEDS SINCE ORIGINAL INTERVIEW. INSTRUCTED TO ARRIVE AT 0630, UP TO 20 OZ CLEAR LIQUIDS UNTIL 0530, THEN NPO. VERBALIZED UNDERSTANDING. STATES HAS TRANSPORTATION BOTH WAYS. Original Note: Report to the Outpatient Waiting Room, entrance under the green pavilion located off [email or web address], at time ___07____ on date _11/05/21 . OR Time: ___899 . - You and your visitor will be asked a series of questions to screen for COVID 19 for your protection. - Only one visitor is allowed at this time. - The patient visitor is requested to leave or wait in car when not with patient. - A mask is required within the hospital. Patients may have clear liquids (water, carbonated beverages, clear teas, apple juice) until 3 hours prior to surgery (0600 AM) with a maximum of 20 ounces. - No food from midnight until time of surgery - Infants may have breast milk until 4 hours before surgery, formula 6 hours prior to surgery. - Children will be allowed to drink immediately following surgery. If applicable, please bring a bottle or sippy cup to assist with drinking. Juice, water, soda, and popsicles are readily available. For infants on formula, please bring formula the day of surgery. Pacifiers are allowed. Take the following medications with a SIP of water the morning of surgery: N/A Medications to discontinue per physician N/A Date to take last dose Please no make-up, nail jamaican, hairspray, perfume, deodorant, or body powder the day of surgery. No jewelry (including any body piercings) or valuables the day of surgery, leave them at home. Please take a shower or bath the night before, or the morning of, surgery with an antibacterial soap. Wear comfortable, loose fitting clothing. Children are encouraged to wear pajamas. - Jewelry must be removed prior to entering the operating room. Rings and piercings that are not removed may be cut off. - The hospital will not accept responsibility for valuables. - Please leave all valuables, including medications, at home the day of surgery. If you are going home after surgery, a licensed customer service driver must drive you home. - NO public transportation without another adult. - We recommend that an adult stay with you for 24 hours following discharge. - We also recommend that you do not drive, make important decision, drink alcoholic beverages, or take any drugs that were not prescribed by your health care provider for at least 24 hours after your discharge time. For Pediatric surgeries, we recommend two adults accompany the child home (only one inside the building at this time). Follow any additional instructions given to you from your surgeon. If you or anyone in your household have experienced Covid symptoms in the past week, please notify your surgeon or the nurse liaison at the phone number below for possible testing. Telephone instructions given to ___PT and asked if any additional questions and then verbalized understanding. Patient advised to call surgeon office or pre surgery nurse liaison [phone] if any additional questions.
--- NOTE | 2021-11-04 14:14 | P.PNAN_ITS ---
Anes - Initial Pre Proc Eval Procedure: Operation Date: 11/05/21 10:00 Proposed Procedures p Removal Biomet Fixation Pins Right Fourth Metacarpal - Willard Frank MD Date/Time: 11/04/21 14:14 Surgeon: Willard Frank MD Pre Op Diagnosis: hx ORIF right 4th metacarpal Patient Data Age: 36 Gender: M Height: 1.85 m Weight: 79.5 kg Allergies Allergy/AdvReac Type Severity Reaction Status Date / Time vancomycin AdvReac Itching Verified 10/31/21 11:20 Home Medications Medication Instructions Recorded Confirmed Type No Home Medications 10/31/21 10/31/21 History Results Review: All pre-operative results and documents have been reviewed as part of the pre- operative evaluation. PMFSH Past Medical History Medical History Chronic narcotic use Smoker Social History Social History Smoking packs per day: 1 Smoking cigarettes per day: 20.0 Years smoked: 15 Smoking pack-years: 15.00 Smoking status: Current every day smoker Tobacco type: cigarettes Second hand tobacco smoke exposure: Yes Additional smoking assessment comments: Marijuana Alcohol intake: former Substance use: current Substance use type: marijuana Other substance usage details: 10 YR HX FENTANLY USAGE - MARIJUANA COUPLE TIMES MONTH-LAST USED 10/2021 Spiritual care concerns: No Anes - Eval Final PreProcedure Day of Procedure 11/04/21 14:14 Patient weight: normal Heart: regular rate and rhythm Lungs: clear to auscultation and normal air movement Airway: Mallampati scale class II Neurological: alert and oriented Last oral intake: >/= 8 hours ASA classification: III Emergent: no Anesthetic plan: proceed Anesthesia type and monitoring: general GIVS and LMA Results Review: All pre-operative results and documents have been reviewed as part of the pre- operative evaluation. Informed Consent: The patient's anesthetic plan and its attendant risks and benefits were discussed with the patient/family/POA. Questions were solicited and answers provided to the satisfaction of the patient/family/POA.
--- NOTE | 2021-11-05 07:13 | WPDHPUPDATE1 ---
History and Physical Update Update Date/Time: 11/05/21 07:13 History and Physical has been reviewed, including an updated exam of the patient. There are NO changes in the patient's condition. Risks, benefits, and alternatives have been discussed and questions answered. Patient agrees to proceed with procedure.
--- NOTE | 2021-11-12 13:22 | P.PNAN_ITS ---
Anes - Initial Pre Proc Eval Procedure: Operation Date: 11/13/21 08:30 Proposed Procedures p Removal Biomet Fixation Pins Right Fourth Metacarpal - Willard Frank MD Date/Time: 11/12/21 13:22 Surgeon: Willard Frank MD Pre Op Diagnosis: hx ORIF right 4th metacarpal Patient Data Age: 36 Gender: M Height: 1.85 m Weight: 79.5 kg Allergies Allergy/AdvReac Type Severity Reaction Status Date / Time vancomycin AdvReac Itching Verified 10/31/21 11:20 Home Medications Medication Instructions Recorded Confirmed Type No Home Medications 10/31/21 10/31/21 History Results Review: All pre-operative results and documents have been reviewed as part of the pre- operative evaluation. PMFSH Past Medical History Medical History Chronic narcotic use Lung mass Smoker Social History Social History Smoking packs per day: 1 Smoking cigarettes per day: 20.0 Years smoked: 15 Smoking pack-years: 15.00 Smoking status: Current every day smoker Tobacco type: cigarettes Second hand tobacco smoke exposure: Yes Additional smoking assessment comments: Marijuana Alcohol intake: former Substance use: current Substance use type: marijuana and IV drugs Other substance usage details: 10 year hx of Fentanyl usage- Spiritual care concerns: No Anes - Eval Final PreProcedure Day of Procedure 11/12/21 13:22 Patient weight: normal Heart: regular rate and rhythm Lungs: clear to auscultation Airway: Mallampati scale class II Neurological: alert and oriented Last oral intake: >/= 8 hours ASA classification: III Emergent: no Anesthetic plan: proceed Anesthesia type and monitoring: general GIVS and standard monitoring Results Review: All pre-operative results and documents have been reviewed as part of the pre- operative evaluation. Informed Consent: The patient's anesthetic plan and its attendant risks and benefits were discussed with the patient/family/POA. Questions were solicited and answers provided to the satisfaction of the patient/family/POA.
--- NOTE | 2021-11-13 07:14 | WPDHPUPDATE1 ---
History and Physical Update Update Date/Time: 11/13/21 07:14 History and Physical has been reviewed, including an updated exam of the patient. There are NO changes in the patient's condition. Risks, benefits, and alternatives have been discussed and questions answered. Patient agrees to proceed with procedure. The patient did not show up for surgery, staff was not able to reach him.
--- NOTE | 2021-11-25 12:54 | PC.NURSE ---
Pt states no changes in health history or medications since initial interview. New pre-op instructions reviewed with pt. Pt denies further questions at this time.
--- NOTE | 2021-11-25 12:54 | PC.NURSE ---
Report to the Outpatient Waiting Room, entrance under the green pavilion located off [facility], at time 0700 on date 12/03/21. OR Time: 0900. - You and your visitor will be asked a series of questions to screen for COVID 19 for your protection. - Only one visitor is allowed at this time. - The patient visitor is requested to leave or wait in car when not with patient. - A mask is required within the hospital. Patients may have clear liquids (water, carbonated beverages, clear teas, apple juice) until 3 hours prior to surgery with a maximum of 20 ounces. - No food from midnight until time of surgery Take the following medications with a SIP of water the morning of surgery: N/A Medications to discontinue per physician: N/A Date to take last dose: N/A Please no make-up, nail qatari, hairspray, perfume, deodorant, or body powder the day of surgery. No jewelry (including any body piercings) or valuables the day of surgery, leave them at home. Please take a shower or bath the night before, or the morning of, surgery with an antibacterial soap. Wear comfortable, loose fitting clothing. - Jewelry must be removed prior to entering the operating room. Rings and piercings that are not removed may be cut off. - The hospital will not accept responsibility for valuables. - Please leave all valuables, including medications, at home the day of surgery. If you are going home after surgery, a licensed motor bus driver must drive you home. - NO public transportation without another adult. - We recommend that an adult stay with you for 24 hours following discharge. - We also recommend that you do not drive, make important decision, drink alcoholic beverages, or take any drugs that were not prescribed by your health care provider for at least 24 hours after your discharge time. Follow any additional instructions given to you from your surgeon. If you or anyone in your household have experienced Covid symptoms in the past week, please notify your surgeon or the nurse liaison at the phone number below for possible testing. Telephone instructions given to PT - RAMONA HARP and asked if any additional questions and then verbalized understanding. Patient advised to call surgeon office or pre surgery nurse liaison [phone] if any additional questions.
--- NOTE | ~2021-12-03 | XR_ITS ---
EXAMINATION: XR surgery orthopedic DATE: 12/03/2021 10:16 INDICATION: Removal of fixation pin from the fourth metacarpal TECHNIQUE: 2 fluoroscopic images of the right hand were obtained during procedure performed by Dr. Kelsey. Radiologist was not present for the imaging or procedure. The amount of fluoroscopy time used du ring this procedure was 0.1 minutes. COMPARISON: 09/03/2021 FINDINGS: Interval removal of the fixation pin from the right fourth metacarpal with no retained foreign bodies . The mid diaphyseal fracture of the fourth metacarpal has healed with solidly bridging callus format ion. There is still some residual lucency along the fracture plane evident on the oblique projection. Alignment appears to remain near-anatomic. Visualized joint spaces are normal. IMPRESSION: 1. Fluoroscopy utilized during fixation pin removal from a healing fourth metacarpal fracture which r emains in near-anatomic alignment Reviewed, dictated and finalized at location A. IMPRESSION: 1. Fluoroscopy utilized during fixation pin removal from a healing fourth metac arpal fracture which remains in near-anatomic alignment
--- NOTE | 2021-12-03 09:12 | P.PNAN_ITS ---
Anes - Initial Pre Proc Eval Procedure: Operation Date: 11/13/21 08:30 Proposed Procedures p Removal Biomet Fixation Pins Right Fourth Metacarpal - Willard Frank MD Operation Date: 12/03/21 09:00 Proposed Procedures p Removal of Biomet Fixation Pin Right Fourth Metacarpal - Willard Frank MD Date/Time: 12/03/21 09:12 Surgeon: Willard Frank MD Pre Op Diagnosis: hx ORIF right 4th metacarpal Patient Data Age: 36 Gender: M Height: 1.85 m Weight: 79.5 kg Allergies Allergy/AdvReac Type Severity Reaction Status Date / Time vancomycin AdvReac Itching Verified 11/25/21 12:53 Home Medications Medication Instructions Recorded Confirmed Type No Home Medications 10/31/21 11/25/21 History Patient hx anesthesia problems: none Family hx anesthesia problems: none Results Review: All pre-operative results and documents have been reviewed as part of the pre- operative evaluation. PMFSH Past Medical History Medical History Chronic narcotic use Lung mass Smoker Social History Social History Smoking packs per day: 1 Smoking cigarettes per day: 20.0 Years smoked: 15 Smoking pack-years: 15.00 Smoking status: Current every day smoker Tobacco type: cigarettes Second hand tobacco smoke exposure: Yes Additional smoking assessment comments: Marijuana Alcohol intake: former Substance use: current Substance use type: marijuana and IV drugs Other substance usage details: 10 year hx of Fentanyl usage- Spiritual care concerns: No Anes - Eval Final PreProcedure Day of Procedure 12/03/21 09:12 Patient weight: normal Heart: regular rate and rhythm Lungs: clear to auscultation Airway: Mallampati scale class II Neurological: alert and oriented Last oral intake: >/= 8 hours ASA classification: III Emergent: no Anesthetic plan: proceed Anesthesia type and monitoring: general LMA and standard monitoring Results Review: All pre-operative results and documents have been reviewed as part of the pre- operative evaluation. Informed Consent: The patient's anesthetic plan and its attendant risks and benefits were discussed with the patient/family/POA. Questions were solicited and answers provided to the satisfaction of the patient/family/POA.
[2021-12-03 09:23] VITALS: BP 134/91; PULSE 94; RESP 14; TEMP 36.7; O2SAT 99
[2021-12-03] MEDS: LIDO 1%/EPINEPHRINE 1:100,000 20 ML VIAL 10 ML INFILTRATE (09:28)
[2021-12-03] MEDS: LACTATED RINGERS 1,000 ML 30 ML IV CONT (09:30)
[2021-12-03] MEDS: BACITRACIN OINTMENT 15 GM TUBE 1 APPLIC TOPICAL (09:46)
[2021-12-03 10:15] VITALS: BP 112/71; PULSE 76; RESP 16; O2SAT 99
--- NOTE | 2021-12-03 10:39 | W.PM.PROC2 ---
Procedure Note - Detailed Date of Procedure 12/03/21 Pre-op Diagnosis hx ORIF right 4th metacarpal Post-op Diagnosis Same Procedure Performed Planned removal of the internal fixation device right 4th metacarpal Surgeon Willard Frank MD Anesthesia MAC Description of Procedure The patient's hand was marked in the holding area . He was taken to the operating room where he was placed supine on the operating table. He was given IV sedation. The extremity was prepped and draped in usual fashion. The site was locally infiltrated with 1% lidocaine with epinephrine. The extremity was exsanguinated and the tourniquet inflated to 250 mmHg. A 1/2 cm incision was made at the prior insertion site. Some blunt dissection revealed the cap and sleeve which were pulled out with a hemostat. Some local scar was excised to allow placement of a large needle roberts on the pin. The pin was removed with proximal traction and rotation. The pin was intact. The tourniquet was released. The wound was closed with 4-0 intradermal Vicryl suture. A small bandage was applied. He has instructions in wound care and follow-up. No prescriptions were written and no follow-up is recommended unless specifically needed. Tourniquet Time 5 Drains No Packing No Pathology None sent Complications No immediate complications Condition Stable Disposition Same day
[2021-12-03 10:45] VITALS: BP 119/82; PULSE 84; RESP 16
== END 2021-12-03 11:05 | disposition home or self-care (01) ==
PROVIDERS: Visit Provider Plastic Surgery
PROC: (CPT 20694; principal; 2021-11-13 08:30)
DX: Z47.2 Encounter for removal of internal fixation device (principal); S62.324D Displaced fracture of shaft of fourth metacarpal bone, right hand, subsequent encounter for fracture with routine healing; X58.XXXD Exposure to other specified factors, subsequent encounter; F17.210 Nicotine dependence, cigarettes, uncomplicated; F12.90 Cannabis use, unspecified, uncomplicated; F11.90 Opioid use, unspecified, uncomplicated
CPT/HCPCS: 20680; A9270; J0690; J2250; J2405; J2704; J7120

== ENCOUNTER 2022-05-04 18:06 | Emergency (ER) | payer OTHER, SELFPAY ==
[2022-05-04 18:10] VITALS: BP 122/70; PULSE 74; RESP 16; TEMP 36.7; O2SAT 100
--- NOTE | 2022-05-04 19:10 | ED.GENADULT ---
HPI - General Adult General Chief complaint: Extremity Problem,Nontraumatic Stated complaint: left hand numb Source: patient Mode of arrival: ambulatory Limitations: no limitations History of Present Illness HPI narrative: Patient presents for evaluation of decreased range of motion left wrist with decreased sensory function in the left wrist/hand. He states he went to bed around midnight last night and woke from sleep at 2:30 a.m. this morning. He noted an inability to extend his hand. He is still able to wiggle all digits of the left hand but feels decreased range of motion of the dorsal aspect left hand. He denies any recent injury. He denies any pain. He does use intravenous fentanyl on a daily basis. He is right-hand dominant. He is not taking any medications for symptoms. He also has difficulty extending the digits of the left hand. He is right hand dominant. Related Data Home Medications Medication Instructions Recorded Confirmed No Home Medications 10/31/21 11/25/21 Allergies Allergy/AdvReac Type Severity Reaction Status Date / Time vancomycin AdvReac Itching Verified 11/25/21 12:53 Review of Systems Review of Systems: CONSTITUTIONAL: Denies fever, chills, or sweats. EYES: Denies visual changes, redness, or discharge. ENT: Denies rhinorrhea, congestion, sore throat, or otalgia. CARDIOVASCULAR: Denies chest pain, palpitations, or edema. RESPIRATORY: Denies cough or dyspnea. GASTROINTESTINAL: Denies abdominal pain, nausea, vomiting, or diarrhea. GENITOURINARY: Denies dysuria or hematuria. SKIN: Denies rash or itching. MUSCULOSKELETAL: Reports decreased range of motion of the left wrist and fingers of the left hand with extension. NEUROLOGIC: Reports numbness and tingling to the dorsal aspect of the left hand. Denies headache, dizziness, or weakness. PSYCHIATRIC: Denies anxiety or depression. [facility] Past Medical History Medical History Chronic narcotic use Lung mass Smoker Surgical History Surgical History History of elbow surgery Family History Family History Mother Family history non-contributory Social History Social History (Updated 05/04/22 @ 19:15 by LOBO Hooks, ) Smoking packs per day: 1 Smoking cigarettes per day: 20.0 Years smoked: 15 Smoking pack-years: 15.00 Smoking status: Current every day smoker Tobacco type: cigarettes Second hand tobacco smoke exposure: Yes Additional smoking assessment comments: Marijuana Alcohol intake: former Substance use: current Substance use type: marijuana, opiates and IV drugs Other substance usage details: 10 year hx of Fentanyl usage- Additional occupation/education comments: Works with [employer] Gender identity (if verbalized by the patient): Male Spiritual care concerns: No Exam Narrative: GENERAL: Well-appearing, well-nourished, and in no acute distress. HEAD: Normocephalic, atraumatic. EYES: PERRLA and EOMI. ENT: Nares clear, no rhinorrhea or epistaxis. Mucous membranes moist. Oropharynx without tonsillar hypertrophy exudate or other lesions. Bilateral TMs pearly seo nonbulging NECK: Supple. No adenopathy or masses. No carotid bruits or JVD CHEST: Clear to auscultation. No respiratory distress. No wheezes rales or rhonchi HEART: Regular rate and rhythm. No murmur heard. Normal peripheral pulses. ABDOMEN: Soft, nontender, nondistended, normal active bowel sounds. EXTREMITIES: 5/5 hand suit attendant strength bilaterally. He has decreased range of motion with extension of left wrist and extension of all digits of the left hand. SKIN: He has several puncture contreras noted to his bilateral hands and forearms. He has a surgical scar noted to the left elbow which is open air without drainage or erythema. NEURO: No focal deficits. Alert and oriented x3. PSYCH: Normal mood and affect.
== END 2022-05-04 19:16 | disposition home or self-care (01) ==
PROVIDERS: Emergency Provider Nurse Practitioner
DX: M21.332 Wrist drop, left wrist (principal); F11.10 Opioid abuse, uncomplicated; F17.210 Nicotine dependence, cigarettes, uncomplicated
CPT/HCPCS: 99212; G0463

== ENCOUNTER 2023-09-20 11:34 | Emergency (ER) | payer OTHER, SELFPAY ==
--- NOTE | ~2023-09-20 | XR_ITS ---
EXAMINATION: XR hand LT min 3V DATE: 09/20/2023 13:41 INDICATION: Left hand injury and pain. TECHNIQUE: 3 views of left hand were obtained. COMPARISON: None. FINDINGS: There is a comminuted fracture of distal hamate involving the distal articular surface at f ifth carpometacarpal joint. The main distal fracture fragment demonstrates 3 mm posterior displacemen t. There is moderate osteoarthritis of first carpometacarpal joint. IMPRESSION: 1. Intra-articular fracture of distal hamate. Reviewed, dictated and finalized at location A.
--- NOTE | ~2023-09-20 | XR_ITS ---
EXAMINATION: XR hand RT min 3V DATE: 09/20/2023 13:42 INDICATION: Right thumb pain. TECHNIQUE: 3 views of right hand were obtained. COMPARISON: Right hand radiographs 08/28/2021 FINDINGS: Bone alignment is normal. There is an old healed fracture of diaphysis of fourth metacarpal . There is mild osteoarthritis of first carpometacarpal joint. IMPRESSION: 1. Mild osteoarthritis of first carpometacarpal joint. Reviewed, dictated and finalized at location A.
[2023-09-20 11:50] VITALS: BP 133/80; PULSE 76; RESP 20; TEMP 36.6; O2SAT 100
--- NOTE | 2023-09-20 13:18 | ED.GENADULT ---
HPI - General Adult General Chief complaint: Extremity Injury, Upper Stated complaint: Left Hand Injury/Right Thumb Injury Time Seen by Provider: 09/20/23 13:18 Source: patient, RN notes reviewed and old records reviewed Mode of arrival: ambulatory Limitations: no limitations History of Present Illness HPI narrative: 38-year-old male to [facility] for complaint of left hand and wrist pain after punching concrete 5 days ago. Patient endorsing increased pain and swelling left hand and wrist. Patient also complaining of right thumb pain; endorses history dislocation and requesting imaging to confirm whether and a right thumb is dislocated. Patient denies injury to right thumb. Patient denies numbness, tingling, other permanent history. Patient reports that he has been working as usual with some difficulty. Related Data Home Medications Medication Instructions Recorded Confirmed No Home Medications 10/31/21 11/25/21 Allergies Allergy/AdvReac Type Severity Reaction Status Date / Time vancomycin AdvReac Itching Verified 11/25/21 12:53 Review of Systems Review of Systems: All systems reviewed & are unremarkable except as noted in HPI and below Constitutional: Constitutional: Reports no additional constitutional complaints Eyes: Eyes: Reports no additional eye complaints ENT: Reports system reviewed and no additional complaints, except as documented Cardiovascular: Cardiovascular: Reports no additional cardiovascular complaints, Denies chest pain and Denies dyspnea Respiratory: Respiratory: Reports no additional respiratory complaints, Denies cough and Denies dyspnea Musculoskeletal: Musculoskeletal: Reports as per HPI, Reports arthralgias, Reports joint swelling, Reports limited range of motion ( left hand and wrist), Reports muscle weakness ( left hand and wrist), Denies numbness and Denies tingling Neurologic: Reports system reviewed and no additional complaints, except as documented Psychiatric: Psychiatric: Reports no additional psychiatric complaints PMF Past Medical History Medical History Chronic narcotic use Lung mass Smoker Surgical History Surgical History History of elbow surgery Family History Family History Mother Family history non-contributory Social History Social History Smoking packs per day: 1 Smoking cigarettes per day: 20.0 Years smoked: 15 Smoking pack-years: 15.00 Smoking status: Current every day smoker Tobacco type: cigarettes Second hand tobacco smoke exposure: Yes Additional smoking assessment comments: Marijuana Alcohol intake: former Substance use: current Substance use type: marijuana, opiates and IV drugs Other substance usage details: 10 year hx of Fentanyl usage- Living arrangements: with family Additional occupation/education comments: Works with [employer] Gender identity (if verbalized by the patient): Male Spiritual care concerns: No Comments At the time of my signature, I reviewed and agree with the nursing past medical, surgical, social, and family history. There is no relevant family history pertinent to the patient complaint. Exam Const: General: cooperative, healthy appearing, comfortable, no acute distress, alert and well nourished Nutritional Appearance: well nourished Orientation/consciousness: patient oriented x3 Limitations: no limitations HENMT: Head: normal to inspection Ears: external ears normal Face/Nose/Sinus: Normal external nose present, Normal nares present, normal facial exam, No erythema and No edema Face and sinus: normal facial exam, no erythema and no edema Mouth: Yes Normal oral and palatal mucosa present Eyes: General: appearance normal, both eyes and all related structures Neck: Neck: normal visual inspecti
== END 2023-09-20 14:40 | disposition home or self-care (01) ==
PROVIDERS: Emergency Provider Nurse Practitioner Family
DX: S62.142A Displaced fracture of body of hamate [unciform] bone, left wrist, initial encounter for closed fracture (principal); W22.8XXA Striking against or struck by other objects, initial encounter; M19.041 Primary osteoarthritis, right hand; F17.210 Nicotine dependence, cigarettes, uncomplicated
CPT/HCPCS: 73130; 99214; G0463